=== PATIENT | male | born 1955 | race Caucasian/White ===

== ENCOUNTER 2020-09-22 08:41 | Observation (INO) ==
[~2020-09-22 08:41] MED LIST: Buffered Lidocaine 1% SYRIN 1 ml INTRADERM ONE; Lactated Ringers 1000 ml BAG 1,000 ML IV SCH
[2020-09-22] MEDS ORDERED: Lidocaine 2% PF 5 ML VIAL ONE ×2 (08:47→13:56)
[2020-09-22] MEDS ORDERED: Propofol 10 MG/ML 20 ML BTL ONE (08:48)
[2020-09-22] MEDS ORDERED: Ondansetron 4 mg VIAL 2 MG/ML 2 ml VIAL ONE ×2 (08:50→15:11)
[2020-09-22] MEDS ORDERED: Midazolam 2 mg/2 ml VIAL 1 mg/ml 2 ml VIAL (2 mg) ONE (08:51)
[2020-09-22] MEDS ORDERED: fentaNYL 100 mcg/2 ml 50 MCG/ML VIAL ONE ×2 (08:52→14:10)
[2020-09-22] MEDS ORDERED: ceFAZolin 2 GM PREMIX 2 GM/50 ML BAG ONE (08:55)
[2020-09-22] MEDS ORDERED: Buffered Lidocaine 1% SYRIN 1 ml INTRADERM ONE (08:56)
[2020-09-22] MEDS ORDERED: Lidocaine 1% MPF 5 ML VIAL ONE (09:24)
[2020-09-22 09:25] LABS: INR 1.15 (0.82-1.09)
[2020-09-22] MEDS ORDERED: Dexamethasone IV 4 MG/ML VIAL 1 ml VIAL ONE ×2 (10:43→11:10)
[2020-09-22] MEDS ORDERED: Bupivacaine 0.5% SDV PF 30ML VIAL ONE (10:48)
[2020-09-22] MEDS ORDERED: Ropivacaine 5 MG/ML 20 ML VIAL 0.5% (100 MG) ONE (10:48)
[2020-09-22] MEDS ORDERED: Rocuronium 50 mg VIAL 10 mg/ml 5 ml VIAL (50 mg) ONE (11:08)
[2020-09-22] MEDS ORDERED: fentaNYL 250 mcg/5 ml 50 MCG/ML 5 ml VIAL (250 MCG) ONE (11:09)
[2020-09-22] MEDS ORDERED: HYDROmorphone 1 MG/1 ML SYRINGE ONE ×3 (12:01→15:08)
[2020-09-22] MEDS ORDERED: Naloxone 0.4 mg VIAL 0.4 mg/ml 1 ml VIAL IV PRN ×2 (12:02→15:08)
[2020-09-22] MEDS ORDERED: diPHENhydraMINE IV 50 MG/ML 1 ml VIAL (BENADRYL) IV PRN ×2 (12:02→14:15)
[2020-09-22] MEDS ORDERED: Levalbuterol HFA INHALER MDI ONE (12:15)
[2020-09-22] MEDS ORDERED: Lactulose 30 ml UDC PO PRN (14:15)
[2020-09-22] MEDS ORDERED: Morphine 2 MG/ML SYRINGE IV PRN (14:15)
[2020-09-22] MEDS ORDERED: Magnesium Hydroxide LIQ 30 ML UDC PO PRN (14:15)
[2020-09-22] MEDS ORDERED: diPHENhydraMINE 25 mg TAB PO PRN (14:15)
[2020-09-22] MEDS ORDERED: Ondansetron ODT 4 mg TAB 4 MG TAB PO PRN (14:15)
[2020-09-22] MEDS ORDERED: Ondansetron 4 mg VIAL 2 MG/ML 2 ml VIAL IV PRN (14:15)
[2020-09-22] MEDS: HYDROmorphone 1 MG/1 ML SYRINGE IV PRN ×5 (14:24→14:53)
[2020-09-22] MEDS ORDERED: HYDROmorphone 1 MG/1 ML SYRINGE IV PRN (15:08)
[2020-09-22] MEDS ORDERED: Ondansetron 4 mg VIAL 2 MG/ML 2 ml VIAL IV ONE (15:12)
[2020-09-22] MEDS: Lactated Ringers 1000 ml BAG 1,000 ML IV SCH (16:14)
[2020-09-22] MEDS: oxyCODONE/Acetamin 5/325 mg TAB PO PRN ×2 (18:28→22:52)
[2020-09-22] MEDS: ceFAZolin 1 GM ADVAN 1 GM in NS 0.9% 50 ML 50 ML IVPB SCH (20:18)
[2020-09-22] MEDS: Magnesium Hydroxide LIQ 30 ML UDC PO SCH (20:29)
[2020-09-23] MEDS: Lactated Ringers 1000 ml BAG 1,000 ML IV SCH (02:44)
[2020-09-23] MEDS: ceFAZolin 1 GM ADVAN 1 GM in NS 0.9% 50 ML 50 ML IVPB SCH ×2 (03:29→11:24)
[2020-09-23] MEDS: oxyCODONE/Acetamin 5/325 mg TAB PO PRN ×3 (03:32→11:25)
[2020-09-23 06:37] LABS: Hematocrit 37 % (42-52); Mean Platelet Volume 9.2 fL (7.4-10.4); Platelet Count 161 10^3/uL (150-450)
[2020-09-23 06:55] LABS: BUN/Creatinine Ratio 18.8 (8-20); Calcium 8.6 mg/dL (8.6-10.3); EGFR African American 140.1 (>60); EGFR Non-African American 115.8 (>60); Potassium 4.1 mmol/L (3.5-5.0)
[2020-09-23] MEDS: Magnesium Hydroxide LIQ 30 ML UDC PO SCH (07:32)
[2020-09-23] MEDS ORDERED: Vitamin THERAPEUTIC TAB PO SCH (09:00)
[2020-09-23 11:17] VITALS: BP 131/74
== END 2020-09-23 13:30 | disposition home or self-care (01) ==
LOC: AA 08:41 → INTOOBSV 08:41 → SSU 16:11
PROVIDERS: ADMIT Orthopaedic Surgery Adult Reconstructive Orthopaedic Surgery; ATTEND Orthopaedic Surgery Adult Reconstructive Orthopaedic Surgery